=== PATIENT | female | born 1960 | race American Indian/Alaskan Native ===

== ENCOUNTER 2017-01-24 22:13 | Emergency (ER) | payer BC ==
[2017-01-24 22:52] LABS: Basophils % (Auto) 0.1 % (0.0-1.8); Eosinophils % (Auto) 4.2 % (0.0-4.3); Hematocrit 29.5 % (30.3-42.9); Hemoglobin 9.5 gm/dl (10.1-14.3); Mean Corpuscular HGB Conc 32 % (30-34); Mean Corpuscular Hemoglobin 26 pg (28-32); Mean Corpuscular Volume 82 fl (79-97); Platelet Count 274 K/mm3 (140-440); Red Blood Count 3.61 M/mm3 (3.65-5.03); Red Cell Distribution Width 14.6 % (13.2-15.2); White Blood Count 7.8 K/mm3 (4.5-11.0)
[2017-01-24 23:05] VITALS: BP 161/98
[2017-01-24 23:13] LABS: Anion Gap 15 mmol/L; BUN/Creatinine Ratio 18.57; Blood Urea Nitrogen 13 mg/dL (7-17); Calcium 8.6 mg/dL (8.4-10.2); Carbon Dioxide 26 mmol/L (22-30); Chloride 104.6 mmol/L (98-107); Glucose 96 mg/dL (65-100); Potassium 3.6 mmol/L (3.6-5.0); Sodium 142 mmol/L (137-145)
== END 2017-01-24 23:20 | disposition left against medical advice (07) ==
LOC: ED 22:13
DX: R07.89 Other chest pain (principal); Z53.21 Procedure and treatment not carried out due to patient leaving prior to being seen by health care provider
CPT/HCPCS: 36415; 80048; 84484; 85025; 93005; 93010

== ENCOUNTER 2017-07-09 03:55 | Emergency (ER) | payer BC, MEDICAID ==
[2017-07-09] MEDS ORDERED: DUONEB *Not for PRN Use IH ONE ×4 (04:20→08:21)
[2017-07-09] MEDS ORDERED: ZOFRAN ONE (04:32)
[2017-07-09] MEDS ORDERED: ZOFRAN IV ONE (04:52)
--- NOTE | 2017-07-09 05:07 | XRay Report ---
FINAL REPORT PROCEDURE: XR CHEST ROUTINE 2V TECHNIQUE: HISTORY: ANDRES COMPARISON: No prior studies are available for comparison. FINDINGS: IMPRESSION:
[2017-07-09] MEDS ORDERED: MAGNESIUM SULFATE 2GM/50ML 2 GM/50 ML BAG IV ONE (08:11)
[2017-07-09] MEDS ORDERED: ATROVENT IH ONE (08:58)
[2017-07-09] MEDS ORDERED: PROVENTIL IH ONE (08:58)
[2017-07-09 09:11] LABS: Anion Gap 18 mmol/L; Blood Urea Nitrogen 9 mg/dL (7-17); Calcium 8.4 mg/dL (8.4-10.2); Carbon Dioxide 23 mmol/L (22-30); Chloride 104.1 mmol/L (98-107); Glucose 198 mg/dL (65-100); Potassium 4.2 mmol/L (3.6-5.0); Sodium 141 mmol/L (137-145)
[2017-07-09 09:12] LABS: Basophils % (Auto) 0.2 % (0.0-1.8); Eosinophils % (Auto) 0.5 % (0.0-4.3); Hematocrit 34.9 % (30.3-42.9); Hemoglobin 11.3 gm/dl (10.1-14.3); Mean Corpuscular HGB Conc 32 % (30-34); Mean Corpuscular Hemoglobin 28 pg (28-32); Mean Corpuscular Volume 87 fl (79-97); Platelet Count 249 K/mm3 (140-440); Red Cell Distribution Width 13.7 % (13.2-15.2); White Blood Count 8.6 K/mm3 (4.5-11.0)
--- NOTE | 2017-07-09 09:12 | Emergency Department Report ---
ED Asthma HPI - General Chief Complaint: Adult Asthma Stated Complaint: ANDRES/ASTHMA Time Seen by Provider: 07/09/17 08:11 Source: patient Mode of arrival: Ambulatory Limitations: No Limitations - History of Present Illness Initial Comments: 57-year-old female past medical history obesity hypertension asthma presents with complaint of shortness of breath since last night. Patient states she was using her nebulizer at home with minimal relief of her shortness of breath. On exam patient is awake and alert but speaking in broken sentences secondary to shortness of breath. Denies being a smoker. Patient accompanied by her sisters. Denies chest pain but does state that she is feeling short of breath. Worse with exertion and her symptoms typical for her asthma exacerbations. Patient states she has a history of previous intubations and multiple ED visits for asthma. MD Complaint: "asthma attack", wheezing Onset/Timin -: days(s) Asthma History: childhood onset, history of frequent attac Severity: moderate Context: none known Associated Symptoms: dry cough Treatments Prior to Arrival: inhaled bronchodilator, inhaled steroid - Related Data Current Asthma Therapy: inhaled bronchodilator, inhaled steroid Home Medications Medication Instructions Recorded Confirmed Last Taken Thyroid,Pork [[place] Thyroid] 30 mg PO QDAY 07/25/13 05/10/16 1 Day Ago 30 Montelukast Sodium 10 mg PO DAILY 05/10/16 05/10/16 05/09/16 Valsartan [Diovan] 160 mg PO DAILY 05/10/16 05/10/16 05/09/16 Previous Rx's Medication Instructions Recorded Last Taken Type Pantoprazole [Protonix TAB] 40 mg PO QDAY #30 tablet 07/28/13 1 Day Ago Rx 40 Fluticasone Propionate [Flonase] 2 sprays NS DAILY #1 spray.susp 12/28/13 1 Day Ago Rx 2 Loratadine [Claritin] 10 mg PO DAILY #30 tablet 12/28/13 1 Day Ago Rx 10 Albuterol Sulfate [Ventolin HFA] 2 puff IH Q4H PRN #1 hfa.aer.ad 05/11/16 Unknown Rx Prednisone [predniSONE 5 mg (6-Day 5 mg PO .TAPER #1 tab.ds.pk 05/11/16 Unknown Rx Pack, 21 Tabs)] ALBUTEROL Inhaler [ProAir HFA 2 puff IH QID PRN #1 inhalation 07/09/17 Unknown Rx Inhaler] Albuterol Sulfate [Ventolin HFA] 2 puff IH Q4H PRN #1 hfa.aer.ad 07/09/17 Unknown Rx Budesonide [Pulmicort Flexhaler] 1 inhalation IH BID #1 aer.pow.ba 07/09/17 Unknown Rx Levalbuterol HCl [Xopenex] 1.25 mg IH Q4H PRN #1 box 07/09/17 Unknown Rx Prednisone [predniSONE 10 mg 10 mg PO .TAPER #1 tab.ds.pk 07/09/17 Unknown Rx (6-Day Pack, 21 Tabs)] Allergies Allergy/AdvReac Type Severity Reaction Status Date / Time codeine Allergy Hives Verified 07/09/17 04:19 Sulfa (Sulfonamide Allergy Hives Verified 07/09/17 04:19 Antibiotics) ED Review of Systems ROS: Stated complaint: ANDRES/ASTHMA Other details as noted in HPI Constitutional: denies: chills, fever Eyes: denies: eye pain, eye discharge, vision change ENT: denies: ear pain, throat pain Respiratory: cough, shortness of breath, wheezing Cardiovascular: denies: chest pain, palpitations Endocrine: no symptoms reported Gastrointestinal: denies: abdominal pain, nausea, diarrhea Genitourinary: denies: urgency, dysuria, discharge Musculoskeletal: denies: back pain, joint swelling, arthralgia Skin: denies: rash, lesions Neurological: denies: headache, weakness, paresthesias Psychiatric: denies: anxiety, depression Hematological/Lymphatic: denies: easy bleeding, easy bruising ED Past Medical Hx - Past Medical History Previous Medical History?: Yes Hx Hypertension: Yes Hx CVA: Yes (8 years ago no residual deficit) Hx Heart Attack/AMI: No Hx Congestive Heart Failure: No Hx Diabetes: Yes Hx Deep Vein Thrombosis: No Hx Pulmonary Embolism: No Hx GERD: Yes Hx Liver Disease: No Hx Sickle Cell Disease: No (sickle cell trait) Hx Arthritis: Yes Hx Seizures: No Hx Asthma: Yes Hx COPD: No Hx Tuberculosis: No Hx Dementia: No Hx HIV: No Additional medical history: Hypothyroidism - Surgical History Past Surgical History?: Yes Hx Coronary Stent: No Hx Open Heart Surgery: No Hx Pacemaker: No Hx Internal Defibrillator: No Hx Cholecystectomy: No Hx Appendectomy: No Hx Breast Surgery: Yes (cyst removed from left breast in 1976) Additional Surgical History: Hysterectomy. Cyst removed from neck, left breast , and left ovary. Gastric [place] [address] Benitez - Social History Smoking Status: Current Some Day Smoker Substance Use Type: None - Medications Home Medications: Home Medications Medication Instructions Recorded Confirmed Last Taken Type Thyroid,Pork [[place] Thyroid] 30 mg PO QDAY 07/25/13 05/10/16 1 Day Ago History 30 Pantoprazole [Protonix TAB] 40 mg PO QDAY #30 tablet 07/28/13 05/10/16 1 Day Ago Rx 40 Fluticasone Propionate [Flonase] 2 sprays NS DAILY #1 spray.susp 12/28/13 1 Day Ago Rx 2 Loratadine [Claritin] 10 mg PO DAILY #30 tablet 12/28/13 05/10/16 1 Day Ago Rx 10 Montelukast Sodium 10 mg PO DAILY 05/10/16 05/10/16 05/09/16 History Valsartan [Diovan] 160 mg PO DAILY 05/10/16 05/10/16 05/09/16 History Albuterol Sulfate [Ventolin HFA] 2 puff IH Q4H PRN #1 hfa.aer.ad 05/11/16 Unknown Rx Prednisone [predniSONE 5 mg (6-Day 5 mg PO .TAPER #1 tab.ds.pk 05/11/16 Unknown Rx Pack, 21 Tabs)] ALBUTEROL Inhaler [ProAir HFA 2 puff IH QID PRN #1 inhalation 07/09/17 Unknown Rx Inhaler] Albuterol Sulfate [Ventolin HFA] 2 puff IH Q4H PRN #1 hfa.aer.ad 07/09/17 Unknown Rx Budesonide [Pulmicort Flexhaler] 1 inhalation IH BID #1 aer.pow.ba 07/09/17 Unknown Rx Levalbuterol HCl [Xopenex] 1.25 mg IH Q4H PRN #1 box 07/09/17 Unknown Rx Prednisone [predniSONE 10 mg 10 mg PO .TAPER #1 tab.ds.pk 07/09/17 Unknown Rx (6-Day Pack, 21 Tabs)] ED Physical Exam - General Limitations: No Limitations General appearance: alert, in no apparent distress - Head Head exam: Present: atraumatic, normocephalic - Eye Eye exam: Present: normal appearance, PERRL, EOMI - ENT ENT exam: Present: mucous membranes moist - Neck Neck exam: Present: normal inspection - Respiratory Respiratory exam: Present: wheezes (patient wheezing bilaterally in both lower lung ortega), decreased breath sounds (slightly decreased breath sounds in upper lung ortega bilaterally). Absent: respiratory distress - Cardiovascular Cardiovascular Exam: Present: regular rate, normal rhythm. Absent: systolic murmur, diastolic murmur, rubs, gallop - GI/Abdominal GI/Abdominal exam: Present: soft, normal bowel sounds - Extremities Exam Extremities exam: Present: normal inspection - Back Exam Back exam: Present: normal inspection - Neurological Exam Neurological exam: Present: alert, oriented X3 - Psychiatric Psychiatric exam: Present: normal affect, normal mood - Skin Skin exam: Present: warm, dry, intact, normal color. Absent: rash ED Course Vital Signs 07/09/17 07/09/17 07/09/17 04:16 04:18 04:28 Temperature 98.7 F Pulse Rate 95 H Pulse Rate [ 92 H 98 H Anterior Bilateral Throughout] Pulse Rate [ Posterior Bilateral Throughout] Respiratory 24 Rate Respiratory 20 20 Rate [Anterior Bilateral Throughout] Respiratory Rate [Posterior Bilateral Throughout] Blood Pressure 156/99 [Right] O2 Sat by Pulse 97 Oximetry 07/09/17 07/09/17 07/09/17 08:22 08:57 09:04 Temperature Pulse Rate Pulse Rate [ Anterior Bilateral Throughout] Pulse Rate [ 86 86 80 Posterior Bilateral Throughout] Respiratory Rate Respiratory Rate [Anterior Bilateral Throughout] Respiratory 20 20 18 Rate [Posterior Bilateral Throughout] Blood Pressure [Right] O2 Sat by Pulse Oximetry 07/09/17 07/09/17 10:11 10:38 Temperature 97.1 F L Pulse Rate 94 H Pulse Rate [ Anterior Bilateral Throughout] Pulse Rate [ 108 H Posterior Bilateral Throughout] Respiratory 20 Rate Respiratory Rate [Anterior Bilateral Throughout] Respiratory 18 Rate [Posterior Bilateral Throughout] Blood Pressure 138/94 [Right] O2 Sat by Pulse 97 Oximetry ED Medical Decision Making - Lab Data Result diagrams: 07/09/17 08:37 07/09/17 08:37 - Medical Decision Making A/P: Asthma exacerbation 1-after methylprednisone magnesium and multiple rounds of albuterol with ipratropium patient significantly improved. Patient is ambulatory with minimal shortness of breath and can speak in full sentences. States she feels significantly better. 2-I refilled patient's prescriptions for Pulmicort and Ventolin nebulized albuterol and provided her with prednisone Dosepak. 3-follow up with primary care doctor 4- vital signs stable for discharge oxygen saturation above 95% Critical care attestation.: If time is entered above; I have spent that time in minutes in the direct care of this critically ill patient, excluding procedure time. ED Disposition Clinical Impression: Exacerbation of asthma Reactive airway disease Qualifiers: Asthma severity: mild intermittent Asthma complication type: with acute exacerbation Qualified Code(s): J45.21 - Mild intermittent asthma with (acute) exacerbation Disposition: TO HOME OR SELFCARE Is pt being admited?: No Does the pt Need Aspirin: No Condition: Stable Instructions: Asthma (ED), Reactive Airways Disease (ED) Prescriptions: ALBUTEROL Inhaler [ProAir HFA Inhaler] 2 puff IH QID PRN #1 inhalation PRN Reason: Shortness Of Breath Albuterol Sulfate [Ventolin HFA] 2 puff IH Q4H PRN #1 hfa.aer.ad PRN Reason: Shortness Of Breath Budesonide [Pulmicort Flexhaler] 1 inhalation IH BID #1 aer.pow.ba Levalbuterol HCl [Xopenex] 1.25 mg IH Q4H PRN #1 box PRN Reason: Shortness Of Breath Prednisone [predniSONE 10 mg (6-Day Pack, 21 Tabs)] 10 mg PO .TAPER #1 tab.ds.pk Referrals: HAZEL HENRY MD [Primary Care Provider] - 3-5 Days Forms: Accompanied Note, Work/School Release Form(ED) Time of Disposition: 12:39
[2017-07-09 10:12] VITALS: BP 138/94
== END 2017-07-09 12:56 | disposition home or self-care (01) ==
LOC: ED 03:55
DX: J45.21 Mild intermittent asthma with (acute) exacerbation (principal); I10 Essential (primary) hypertension; Z86.73 Personal history of transient ischemic attack (TIA), and cerebral infarction without residual deficits; E11.9 Type 2 diabetes mellitus without complications; K21.9 Gastro-esophageal reflux disease without esophagitis; F17.200 Nicotine dependence, unspecified, uncomplicated; Z88.2 Allergy status to sulfonamides; Z88.5 Allergy status to narcotic agent
CPT/HCPCS: 36415; 71020; 80048; 82140; 82805; 84484; 85025; 94640; 94644; 96365; 96375; 99284; J2405; J2930; J3475

== ENCOUNTER 2018-02-27 06:43 | Emergency (ER) | payer BC, MEDICAID ==
[2018-02-27 07:18] VITALS: BP 180/113
[2018-02-27] MEDS ORDERED: MOTRIN PO ONE ×2 (07:18→07:23)
[2018-02-27] MEDS ORDERED: CATAPRES ONE (07:19)
[2018-02-27] MEDS ORDERED: CATAPRES PO ONE (07:22)
== END 2018-02-27 09:50 | disposition left against medical advice (07) ==
LOC: ED 06:43
DX: R51 Headache (principal); Z53.21 Procedure and treatment not carried out due to patient leaving prior to being seen by health care provider

== ENCOUNTER 2018-07-03 22:23 | Emergency (ER) | payer MEDICAID ==
[2018-07-03 22:42] VITALS: BP 155/99
== END 2018-07-04 00:28 | disposition left against medical advice (07) ==
LOC: ED 22:23
DX: R07.89 Other chest pain (principal); Z53.21 Procedure and treatment not carried out due to patient leaving prior to being seen by health care provider
CPT/HCPCS: 93005; 93010

== ENCOUNTER 2018-11-19 07:41 | Emergency (ER) | payer MEDICAID ==
[2018-11-19] MEDS ORDERED: MAGNESIUM SULFATE 2GM/50ML 2 GM/50 ML BAG IV ONE (08:09)
[2018-11-19] MEDS ORDERED: SOLU-Medrol IV ONE (08:09)
[2018-11-19] MEDS ORDERED: ATROVENT IH ONE ×2 (08:09→13:17)
[2018-11-19] MEDS ORDERED: PROVENTIL IH ONE ×2 (08:09→13:17)
[2018-11-19] MEDS ORDERED: ZOFRAN IV ONE (08:26)
[2018-11-19] MEDS ORDERED: SUBLIMAZE IV ONE (08:26)
--- NOTE | 2018-11-19 08:29 | Emergency Department Report ---
HPI - General Chief Complaint: Adult Asthma Time Seen by Provider: 11/19/18 08:08 - HPI HPI: Room 4 The patient is a 58-year-old female presenting with chief complaint of shortness of breath and right lower extremity pain. The patient states past 2 weeks she has pain from her right thigh distally mostly when lying down at night. Patient denies any preceding trauma. Patient states at times her toes go numb on the right foot. The patient states she went to see her primary physician and they had ordered an MRI for her however the patient states she was required to pay $502 and subsequently did not have the MRI performed. Patient also complains of shortness of breath attributed to her asthma which she states is present "all the time." Location: [See above] Duration: [See above] Quality: [See above] Severity: [See above] Modifying factors: [see above] Context: [see above] Mode of transportation: [not driving] ED Past Medical Hx - Past Medical History Previous Medical History?: Yes Hx Hypertension: Yes Hx CVA: Yes (8 years ago no residual deficit) Hx Diabetes: Yes Hx GERD: Yes Hx Sickle Cell Disease: (sickle cell trait) Hx Arthritis: Yes Hx Seizures: Yes Hx Asthma: Yes Additional medical history: Hypothyroidism - Surgical History Past Surgical History?: Yes Hx Breast Surgery: Yes (cyst removed from left breast in 1976) Additional Surgical History: Hysterectomy. Cyst removed from neck, left breast, and left ovary. Gastric [place] [address] Benitez - Family History Family history: no significant - Social History Smoking Status: Never Smoker Substance Use Type: None - Medications Home Medications: Home Medications Medication Instructions Recorded Confirmed Last Taken Type Thyroid,Pork [[place] Thyroid] 30 mg PO QDAY 07/25/13 05/10/16 1 Day Ago History ~04/12/16 30 Pantoprazole [Protonix TAB] 40 mg PO QDAY #30 tablet 07/28/13 05/10/16 1 Day Ago Rx ~04/12/16 40 Fluticasone Propionate [Flonase] 2 sprays NS DAILY #1 spray.susp 12/28/13 0 05/10/16 1 Day Ago Rx ~04/12/16 2 Loratadine [Claritin] 10 mg PO DAILY #30 tablet 12/28/13 05/10/16 1 Day Ago Rx ~06/06/16 10 Montelukast Sodium 10 mg PO DAILY 05/10/16 05/10/16 05/09/16 History Valsartan [Diovan] 160 mg PO DAILY 05/10/16 05/10/16 05/09/16 History Albuterol Sulfate [Ventolin HFA] 2 puff IH Q4H PRN #1 hfa.aer.ad 05/11/16 Unknown Rx Prednisone [predniSONE 5 mg (6-Day 5 mg PO .TAPER #1 tab.ds.pk 05/11/16 Unknown Rx Pack, 21 Tabs)] ALBUTEROL Inhaler (OR & NICU) 2 puff IH QID PRN #1 inhalation 07/09/17 Unknown Rx [ProAir HFA Inhaler] Albuterol Sulfate [Ventolin HFA] 2 puff IH Q4H PRN #1 hfa.aer.ad 07/09/17 Unknown Rx Budesonide [Pulmicort Flexhaler] 1 inhalation IH BID #1 aer.pow.ba 07/09/17 Unknown Rx Levalbuterol HCl [Xopenex] 1.25 mg IH Q4H PRN #1 box 07/09/17 Unknown Rx Prednisone [predniSONE 10 mg 10 mg PO .TAPER #1 tab.ds.pk 07/09/17 Unknown Rx (6-Day Pack, 21 Tabs)] HYDROcodone/APAP 5-325 [[place] 1 - 2 each PO Q6HR PRN #14 tablet 11/19/18 Unknown Rx 5/325] Ibuprofen [Motrin 800 MG tab] 800 mg PO Q8HR PRN #20 tablet 11/19/18 Unknown Rx ED Review of Systems ROS: Stated complaint: (R) LEG PAIN/SOB Other details as noted in HPI Constitutional: no symptoms reported Eyes: denies: eye pain ENT: denies: throat pain Respiratory: shortness of breath, wheezing Cardiovascular: denies: chest pain Endocrine: no symptoms reported Gastrointestinal: denies: abdominal pain Genitourinary: denies: dysuria Musculoskeletal: myalgia. denies: back pain Neurological: paresthesias. denies: headache Physical Exam - Physical Exam Vital Signs: Vital Signs 11/19/18 07:51 Temperature 98.0 F Pulse Rate 87 Respiratory 20 Rate Blood Pressure 128/77 O2 Sat by Pulse 96 Oximetry Physical Exam: GENERAL: The patient is well-developed well-nourished female sitting on stretcher exhibited frequent cough. [] HEENT: Normocephalic. Atraumatic. Extraocular motions are intact. Patient has moist mucous membranes. NECK: Supple. Trachea midline CHEST/LUNGS: Diffuse wheezing. Frequent coughing. HEART/CARDIOVASCULAR: Regular. There is no tachycardia. There is no gallop rub or murmur. 2+ right DP ABDOMEN: Abdomen is soft, nontender. Patient has normal bowel sounds. There is no abdominal distention. SKIN: There is no rash. There is no edema. There is no diaphoresis. NEURO: The patient is awake, alert, and oriented. The patient is cooperative. The patient has no focal neurologic deficits. The patient has normal speech MUSCULOSKELETAL: There is no tenderness or deformity of the right lower extremity. There is no limitation range of motion. There is no evidence of acute injury. ED Course Vital Signs 11/19/18 07:51 Temperature 98.0 F Pulse Rate 87 Respiratory 20 Rate Blood Pressure 128/77 O2 Sat by Pulse 96 Oximetry ED Medical Decision Making - Lab Data Result diagrams: 11/19/18 08:20 11/19/18 08:20 Laboratory Tests 11/19/18 11/19/18 11/19/18 08:20 08:20 08:29 WBC 6.1 RBC 3.62 L Hgb 10.8 Hct 32.6 MCV 90 MCH 30 MCHC 33 RDW 13.1 L Plt Count 221 Lymph % (Auto) 33.0 [place] % (Auto) 7.8 H Eos % (Auto) 11.4 H Baso % (Auto) 0.2 Lymph # 2.0 [place] # 0.5 Eos # 0.7 H Baso # 0.0 Seg Neutrophils % 47.6 Seg Neutrophils # 2.9 Sodium 143 Potassium 3.7 Chloride 106.7 Carbon Dioxide 27 Anion Gap 13 BUN 15 Creatinine 1.1 Estimated GFR > 60 BUN/Creatinine Ratio 14 Glucose 103 H Calcium 8.6 Total Creatine Kinase 100 NT-Pro-B Natriuret Pep 53.74 - Radiology Data Radiology results: report reviewed (right lower extremity Doppler, chest x-ray), image reviewed (chest x-ray, right lower extremity Doppler) interpreted by me: Chest x-ray-no focal infiltrate, no pneumothorax [facility] [address] [place] [address] Vascular Lab Report Signed Patient: MAYKEL REA MR#: [id number] : 1960 Acct:[id number] Age/Sex: 58 / F ADM Date: 11/19/18 Loc: ED Attending Dr: Ordering Physician: MOO PARKER MD Date of Service: 11/19/18 Procedure(s): VL venous duplex LE RT Accession Number(s): [id number] cc: MOO PARKER MD FINAL REPORT EXAM: VL VENOUS DUPLEX LE RT HISTORY: pain TECHNIQUE: Crowley scale with color flow and spectral waveform Doppler imaging of right lower extremity veins. PRIORS: None. FINDINGS: There is no evidence of deep venous thrombosis in the right lower extremity. Flow is demonstrated by color flow and spectral waveform Doppler imaging. There is appropriate augmentation and wall compression. Visualized greater saphenous is also patent without visualized thrombus. IMPRESSION: There is no evidence for DVT in the right lower extremity. Transcribed By: ILIANA Dictated By: ISAAC ELLSWORTH MD Electronically Authenticated By: ISAAC ELLSWORTH MD Signed Date/Time: 11/19/18 1222 DD/ 1224 TD/TT: 11/19/18 1224 [facility] [address] [place] [address] XRay Report Signed Patient: MAYKEL REA MR#: [id number] : 1960 Acct:[id number] Age/Sex: 58 / F ADM Date: 11/19/18 Loc: ED Attending Dr: Ordering Physician: MOO PARKER MD Date of Service: 11/19/18 Procedure(s): XR chest 1V ap Accession Number(s): [id number] cc: MOO PARKER MD Fluoro Time In Minutes: FINAL REPORT EXAM: XR CHEST 1V AP HISTORY: cough, wheezing TECHNIQUE: Chest, portable upright PRIORS: 07/09/2017 FINDINGS: The heart size is normal. Mediastinal contours are normal. Pulmonary vasculature is not congested. The lungs are clear. There are no pleural effusion seen. There is no evidence of pneumothorax. IMPRESSION: There is no acute abnormality identified. Transcribed By: [facility] Dictated By: ISAAC ELLSWORTH MD Electronically Authenticated By: ISAAC ELLSWORTH MD Signed Date/Time: 11/19/18947 DD/ 8 TD/TT: 11/19/18948 - Differential Diagnosis DVT, rhabdomyolysis, sciatica, lumbar radiculopathy, asthma exacerbation Critical care attestation.: If time is entered above; I have spent that time in minutes in the direct care of this critically ill patient, excluding procedure time. ED Disposition Clinical Impression: Asthma with exacerbation, Right leg pain Disposition: TO HOME OR SELFCARE Is pt being admited?: No Does the pt Need Aspirin: No Condition: Stable Additional Instructions: Return to the emergency department immediately should you develop worsening symptoms, fever, inability to tolerate food or liquid or any other concerns. Prescriptions: HYDROcodone/APAP 5-325 [[place] 5/325] 1 - 2 each PO Q6HR PRN #14 tablet PRN Reason: Pain Ibuprofen [Motrin 800 MG tab] 800 mg PO Q8HR PRN #20 tablet PRN Reason: Pain, Moderate (4-6) Referrals: PRIMARY MD LUDWIN [Primary Care Provider] - 3-5 Days CHRISSIE MEANS MD [Staff Physician] - 3-5 Days (Dr. Means is an orthopedic surgeon. Please follow-up with him for further evaluation) Time of Disposition: 12:37
[2018-11-19 08:31] LABS: Basophils % (Auto) 0.2 % (0.0-1.8); Eosinophils # (Auto) 0.7 K/mm3 (0.0-0.4); Eosinophils % (Auto) 11.4 % (0.0-4.3); Hematocrit 32.6 % (30.3-42.9); Hemoglobin 10.8 gm/dl (10.1-14.3); Mean Corpuscular HGB Conc 33 % (30-34); Mean Corpuscular Volume 90 fl (79-97); Monocytes # (Auto) 0.5 K/mm3 (0.0-0.8); Monocytes % (Auto) 7.8 % (0.0-7.3); Platelet Count 221 K/mm3 (140-440); Red Blood Count 3.62 M/mm3 (3.65-5.03); Red Cell Distribution Width 13.1 % (13.2-15.2)
[2018-11-19 08:51] LABS: BUN/Creatinine Ratio 14; Blood Urea Nitrogen 15 mg/dL (7-17); Calcium 8.6 mg/dL (8.4-10.2); Hemolysis Index 4
--- NOTE | 2018-11-19 09:48 | XRay Report ---
FINAL REPORT EXAM: XR CHEST 1V AP HISTORY: cough, wheezing TECHNIQUE: Chest, portable upright PRIORS: 07/09/2017 FINDINGS: The heart size is normal. Mediastinal contours are normal. Pulmonary vasculature is not congested. The lungs are clear. There are no pleural effusion seen. There is no evidence of pneumothorax. IMPRESSION: There is no acute abnormality identified.
--- NOTE | 2018-11-19 12:22 | Vascular Lab Report ---
FINAL REPORT EXAM: VL VENOUS DUPLEX LE RT HISTORY: pain TECHNIQUE: Crowley scale with color flow and spectral waveform Doppler imaging of right lower extremity veins. PRIORS: None. FINDINGS: There is no evidence of deep venous thrombosis in the right lower extremity. Flow is demonstrated by color flow and spectral waveform Doppler imaging. There is appropriate augmentation and wall compression. Visualized greater saphenous is also patent without visualized thrombus. IMPRESSION: There is no evidence for DVT in the right lower extremity.
[2018-11-19 14:48] VITALS: BP 138/78
== END 2018-11-19 14:47 | disposition home or self-care (01) ==
LOC: ED 07:41
DX: J45.901 Unspecified asthma with (acute) exacerbation (principal); M79.661 Pain in right lower leg; I10 Essential (primary) hypertension; E11.9 Type 2 diabetes mellitus without complications; K21.9 Gastro-esophageal reflux disease without esophagitis; M19.90 Unspecified osteoarthritis, unspecified site; Z90.710 Acquired absence of both cervix and uterus; E03.9 Hypothyroidism, unspecified
CPT/HCPCS: 36415; 71045; 80048; 82550; 83880; 85025; 93971; 94640; 96365; 96375; 99285; J2930; J3010; J3475